=== PATIENT | male | born 1955 | race Caucasian/White ===

== ENCOUNTER 2017-01-27 08:01 | Day surgery (SDC) | payer OTHER ==
[~2017-01-27] VITALS: Ht 170.2 cm; Wt 80.9 kg
[~2017-01-27 08:01] MED LIST: ALEN70TA5 PO; APIX2.5T PO; CALCIUM PO; CARV25TA12 PO; COLCHICINE PO; DIGO250T PO; FEBU40TA PO; FURO-93 PO; LISI5TAB7 PO; LISINOPRIL PO; MAG PO; MAGN400T7 PO; METO5TAB5 PO; ONDA4TAB7 PO; OXYC-307 PO; PANT20TA3 PO; POTA10TA11 PO; SPIR25TA3 PO; WARF2.5T PO; WARF5TAB PO; ZINC PO; [UNRECOGNIZED DRUG - OTHER]; [UNRECOGNIZED DRUG - OTHER] PO; [UNRECOGNIZED DRUG - OTHER] PO; oxycodone PO; potassium PO
[2017-01-27 08:50] VITALS: BP 87/66
[2017-01-27] MEDS ORDERED: LACTATED RINGERS 1,000 ML IV SCH (08:56)
[2017-01-27] MEDS ORDERED: LIDOCAINE 1%, 2ML SQ PRN (09:00)
[2017-01-27] MEDS ORDERED: PROPOFOL 10 MG/ML, 20ML ONE (10:10)
[2017-01-27] MEDS ORDERED: FENTANYL PF 100 MCG/2ML IV PRN (10:30)
[2017-01-27] MEDS ORDERED: OXYcodone 5 MG/5 ML ORAL.SOL UDC PO PRN (10:30)
[2017-01-27] MEDS ORDERED: ONDANSETRON 2MG/ML, 2ML IVPush PRN (10:30)
[2017-01-27] MEDS ORDERED: PROMETHAZINE 25 MG/ML, 1ML IV PRN (10:30)
== END 2017-01-27 11:53 ==
LOC: OUT 08:01
PROVIDERS: ATTEND Internal Medicine
DX: K74.60 Unspecified cirrhosis of liver (principal); I85.00 Esophageal varices without bleeding; K31.9 Disease of stomach and duodenum, unspecified
CPT/HCPCS: 43235; J2704; J3490; J7120